=== PATIENT | male | born 1990 | race African-American/Black ===

== ENCOUNTER 2024-12-17 04:12 | Emergency (ER) | payer BC, MEDICAID ==
[~2024-12-17] VITALS: Ht 203.2 cm; Wt 93.0 kg
[2024-12-17 04:30] VITALS: O2SAT 99
[2024-12-17 04:39] VITALS: TEMP 98.2; O2SAT 100
[2024-12-17] MEDS ORDERED: CYCLOBENZAPRINE 10MG TABLET PO ONE (06:45)
[2024-12-17] MEDS ORDERED: KETOROLAC 30MG/ML VIAL IV ONE (06:45)
[2024-12-17] MEDS ORDERED: IBUP-2029 MT (08:55)
[2024-12-17] MEDS ORDERED: CYCL5TAB3 MT (08:57)
[2024-12-17 08:59] VITALS: BP 125/51; PULSE 63; RESP 16
[2024-12-17] MEDS: KETOROLAC 30MG/ML VIAL IM ONE (08:59)
[2024-12-17] MEDS: CYCLOBENZAPRINE 10MG TABLET PO NR (08:59)
== END 2024-12-17 09:04 | disposition home or self-care (01) ==
LOC: ER 04:12
DX: M54.2 Cervicalgia (principal); M54.50 Low back pain, unspecified; M25.562 Pain in left knee
CPT/HCPCS: 72100; 73560; 96372; 99284; J1885; Z7610